=== PATIENT | female | born 1980 | race Hispanic/Latino ===

== ENCOUNTER 2019-04-14 06:40 | Observation (INO) ==
[2019-04-14] MEDS ORDERED: NS 1,000 ML IV ONE (07:08)
[2019-04-14] MEDS ORDERED: TORADOL IV ONE (07:08)
--- NOTE | 2019-04-14 08:05 | Diag Imaging Result Doc PS360 ---
EXAM: FLAT/UPRIGHT ABD/1 VIEW CHEST HISTORY: pain ruq TECHNIQUE: Two view abdomen. Single view chest. COMPARISON: None. FINDINGS: Supine and erect views of the abdomen reveal a nonobstructive bowel gas pattern. There is no organomegaly or mass effect. There is moderate colonic stool burden. Metallic tubular structure projects over the left ramus. Single view of the chest reveals no infiltrate, effusion, or pneumothorax. There is no free air beneath the hemidiaphragm. IMPRESSION: Moderate constipation. Electronically signed by Ame Orellana 04/14/2019 8:03 AM
[2019-04-14 08:16] LABS: BILIRUBIN URINE NEGATIVE (NEGATIVE); BLOOD URINE 4+ (NEGATIVE); CLARITY SL. CLOUDY (CLEAR); COLOR YELLOW; GLUCOSE URINE NEGATIVE (NEGATIVE); KETONE URINE TRACE mg/dL (NEGATIVE); LEUKOCYTES URINE 1+ (NEGATIVE); NITRITE URINE NEGATIVE (NEGATIVE); PH URINE 6.5; PROTEIN URINE 1+(30 mg/dL) mg/dL (NEGATIVE); SP GRAVITY URINE 1.025; UROBILINOGEN URINE NORMAL
[2019-04-14 08:17] LABS: BASO# 0.01 X1000 (0.0-0.2); BASO% 0.1 % (0.0-0.8); EOS# 0.03 X1000 (0.0-0.7); EOS% 0.4 % (0.0-10.0); HEMATOCRIT 35.1 % (37.0-47.0); HEMOGLOBIN 10.5 g/dL (12.0-16.0); LYMPH% 16.4 % (20.5-51.1); MCH 22.1 PG (27-31); MCHC 29.9 g/dL (33-37); MCV 73.9 FL (81-99); MONO# 0.54 X1000 (0.11-0.59); MONO% 7.4 % (1.7-9.3); MPV 10.8 FL (7.4-10.4); NEUT# 5.53 X1000 (1.4-6.5); NEUT% 75.7 % (42.2-75.2); PLT 271 X1000 (130-400); RBC 4.75 XMIL (4.2-5.4); RDW 17.5 % (11.5-14.5); URINE BACTERIA NEGATIVE /HFP; URINE CAST NONE SEEN /LPF; URINE CRYSTAL NONE SEEN /HPF; URINE EPITHELIAL CELLS <10 /HPF (<10); URINE RBC TNTC /HPF (<10); URINE SOURCE CLEAN CATCH; URINE WBC <10 /HPF (<10); URINE YEAST NONE SEEN /HPF; WBC 7.31 X1000 (4.8-10.8)
[2019-04-14 08:35] LABS: AGAP 11; ALBUMIN 4.5 g/dL (3.5-5.0); ALKALINE PHOSPHATASE 71 U/L (32-104); AMYLASE 61 U/L (20-200); BUN 7 mg/dL (8-22); CALCIUM 9.3 mg/dL (8.8-10.2); CHLORIDE 109 mmol/L (98-107); COSMO 283; CREATININE 0.6 mg/dL (0.5-0.9); ESTIMATED GFR > 60; GLUCOSE 99 mg/dL (70-104); GOT 15 U/L (10-30); GPT 10 U/L (10-36); POTASSIUM 4.9 mmol/L (3.5-5.1); SODIUM 143 mmol/L (136-145); TCO2 23 mmol/L (25-35); TOTAL PROTEIN 7.6 g/dL (6.3-8.3)
--- NOTE | 2019-04-14 09:26 | EKG Report ---
Test Performed on : 04/14/2019 07:14:16 AM Test Reason : CP Blood Pressure : / mmHG Vent. Rate : 088 BPM Atrial Rate : 088 BPM P-R Int : 096 ms QRS Dur : 078 ms QT Int : 386 ms P-R-T Axes : 026 063 018 degrees QTc Int : 467 ms Sinus rhythm. with short [place] Nonspecific ST abnormality Abnormal ECG No previous ECGs available Unconfirmed Result
--- NOTE | 2019-04-14 10:47 | Diag Imaging Result Doc PS360 ---
EXAM: CT RENAL STONE SEARCH HISTORY: pain TECHNIQUE: This exam was performed using automated exposure control, adjustment of mA or kV according to patient size, and/or use of iterative reconstruction technique. COMPARISON: None. FINDINGS: Lung bases: There are bibasilar alveolar infiltrates and bilateral effusions right greater than left. Limited evaluation of the unenhanced liver, spleen, pancreas, adrenal glands, kidneys and visualized bowel are unremarkable. Kidneys/Ureter/Bladder: There is a tiny punctate calcification left kidney. No right nephrolithiasis. No hydronephrosis is appreciated. Retroperitoneum: Normal caliber aorta. No pneumoperitoneum is identified. No ascites is identified. Normal appendix. Unenhanced uterus appears prominent. No acute bony abnormality is demonstrated. IMPRESSION: 1.Bibasilar alveolar infiltrates and small bilateral effusions. 2.Punctate calcification left kidney. No hydronephrosis. 3. Incidental findings as detailed above. Electronically signed by Ame Orellana 04/14/2019 10:44 AM
--- NOTE | 2019-04-14 12:36 | PROVIDER DOCUMENTATION ---
This chart was entered by Kelsey Teague Scribe, acting as scribe for Juan Chappell MD. HPI-Chest Pain - General Chief Complaint: Chest Pain Stated Complaint: FLANK PAIN Time Seen by Provider: 04/14/19 07:04 Source: patient Allergies/Adverse Reactions: Patient Allergies Allergy/AdvReac Type Severity Reaction Status Date / Time No Known Allergies Allergy Verified 04/14/19 06:55 Home Medications: Home Medication List Medication Instructions Recorded Confirmed Last Taken Type NK [No Home Medications] 04/14/19 04/14/19 Unknown History - History of Present Illness-CP Nature of Presenting Problem: 39 yof presents to the ed with c/o rt lower chest wall pain and rt flank pain acute onset at 0300am. pt has no hx of stones Location: reports: other (rt anterior chest wall under breast) Chest Pain Radiation: reports: back (rt flank) Quality of Pain: reports: aching, dull Severity in ED: moderate Onset/Duration: this morning (0300am) Timing: still present, improving, intermittent Context/Activities at Onset: reports: sleep (pt was woke from sleep) Modifying Factors: improves with: nothing Associated Symptoms: reports: back pain. denies: nausea, shortness of breath, vomiting Nitro Today/Relief: no nitro taken today Aspirin Treatment Today: 325 mg x 1, provided by ED Prior Chest Pain/Cardiac Workup: reports: no prior chest pain Similar Symptoms Previously?: No Recently Seen Here or By Another Healthcare Provider: No Review of Systems - Adult - REVIEW OF SYSTEMS - ADULT Constitutional: denies: chills, fever Eyes: reports: no symptoms reported Ears, Nose, Mouth & Throat: reports: no symptoms reported Cardiovascular: reports: see HPI, chest pain. denies: palpitations, syncope Respiratory: denies: cough, shortness of breath, wheezing Gastrointestinal: denies: abdominal pain, diarrhea, nausea, vomiting Genitourinary: reports: see HPI, flank pain Musculoskeletal: reports: see HPI, back pain. denies: neck pain Integumentary: reports: no symptoms reported Neurological: denies: dizziness/vertigo, headache/migraines Psychiatric: reports: no symptoms reported Endocrine: reports: no symptoms reported Hematologic/Lymphatic: reports: no symptoms reported Allergic/Immunologic: reports: no symptoms reported All Other Systems: Reviewed and Negative Past History - Adult - PAST MEDICAL HISTORY-ADULT Review of Records: reports: Old Records Reviewed, Nursing Assessment Review, Medications Reviewed, Social history reviewed & non-contributory. Major Childhood Illnesses: reports: denies history Cardiovascular: reports: denies history Respiratory: reports: denies history Gastrointestinal: reports: denies history Obstetrical/Gynecological: reports: denies history Genitourinary: reports: denies history Musculoskeletal: reports: denies history Hand Dominance: Right Handed Neurological: reports: denies history Psychiatric: reports: denies history Endocrine/Immune: reports: denies history Other Conditions: reports: denies history - PRIOR SURGERIES/PROCEDURES Surgical/Procedure History: reports: reviewed, not pertinent - IMMUNIZATION STATUS Childhood Immunizations: See Nurse Assessment Flu Vaccine: See Nurse Assessment - FAMILY HISTORY Family History: reviewed, not pertinent - SOCIAL HISTORY Smoking: denies Substance Use: denies Alcohol Use Frequency: never Living Situation: family Physical Exam-General - PHYSICAL EXAM-ADULT Initial Vital Signs Reviewed: Yes - CONSTITUTIONAL General Appearance: appears well, alert, mild distress - EYES Eyes: PERRL/EOMI, pink conjunctivae - HEAD, EARS, NOSE, MOUTH & THROAT HENMT: normocephalic/atraumatic, moist mucous membranes, normal ENT inspection - NECK Neck: non-tender, full range of motion, supple, normal inspection - RESPIRATORY Respiratory: lungs clear, normal breath sounds - CARDIOVASCULAR Cardiovascular: normal peripheral pulses, tachycardia (109) - CHEST (BREASTS) Chest/Breast: tenderness (rt lower chest pain under breast) - GASTROINTESTINAL (ABDOMEN) Abdominal Exam: normal bowel sounds, non tender, soft - GENITOURINARY Female Genitalia/Pelvic Exam: deferred, other (pt is on menstrual cycle now) Rectal Exam: deferred Hemoccult Exam: deferred - LYMPHATIC Lymphatic: no adenopathy - MUSCULOSKELETAL Back Exam: normal inspection, no CVA tenderness, no vertebral tenderness, other (rt flank pain) Extremity: normal range of motion, non-tender, normal gait, normal inspection - SKIN Integumentary: normal color, normal turgor, warm/dry - NEUROLOGIC Neurologic: grossly normal - PSYCHIATRIC Psych/Mental Status: normal mood/affect, normal thought content, normal thought process, oriented x 3 - HEART Score HEART Score: History: Slightly Suspicious HEART Score: ECG: Normal HEART Score: Age: < or = 45 Years HEART Score: Risk Factors for Atherosclerotic Disease: No Risk Factors Known HEART Score: Troponin: < or = Normal Limit Total HEART Score:: 0 Progress - PLAN OF CARE/RESULTS Progress/Plan/Lab Results: Vital Signs - 8 hr 04/14/19 06:50 04/14/19 10:59 Temperature 98.4 F 98.5 F Pulse Rate 109 H 65 Respiratory Rate 20 17 Blood Pressure 128/90 111/71 O2 Sat by Pulse Oximetry 95 100 Laboratory Results - last 24 hr 04/14/19 04/14/19 04/14/19 07:45 07:45 07:45 WBC 7.31 RBC 4.75 Hgb 10.5 L Hct 35.1 L MCV 73.9 L MCH 22.1 L MCHC 29.9 L RDW Std Deviation 17.5 H Plt Count 271 MPV 10.8 H Immature Gran % (Auto) 0.0 Neut % (Auto) 75.7 H Lymph % (Auto) 16.4 L Gates % (Auto) 7.4 Eos % (Auto) 0.4 Baso % (Auto) 0.1 Immature Gran # (Auto) 0.00 Neut # (Auto) 5.53 Lymph # (Auto) 1.20 Gates # (Auto) 0.54 Eos # (Auto) 0.03 Baso # (Auto) 0.01 D-Dimer, Quantitative Sodium 143 Potassium 4.9 Chloride 109 H Carbon Dioxide 23 L Anion Gap 11 BUN 7 L Creatinine 0.6 Estimated GFR/1.73 m2 > 60 BUN/Creatinine Ratio 12 Glucose 99 Calculated Osmolality 283 Calcium 9.3 Total Bilirubin 0.30 AST 15 ALT 10 Alkaline Phosphatase 71 Total Protein 7.6 Albumin 4.5 Globulin 3.0 Albumin/Globulin Ratio 1.0 Amylase 61 Lipase 28 Urine Source Urine Color Urine Clarity Urine pH Ur Specific [place] Urine Protein Urine Ketones Urine Blood Urine Nitrite Urine Bilirubin Urine Urobilinogen Urine Microscopic RBC Urine WBC Urine Microscopic WBC Ur Epithelial Cells Urine Crystals Urine Bacteria Urine Casts Urine Yeast Urine Glucose 04/14/19 04/14/19 07:45 07:45 WBC RBC Hgb Hct MCV MCH MCHC RDW Std Deviation Plt Count MPV Immature Gran % (Auto) Neut % (Auto) Lymph % (Auto) Gates % (Auto) Eos % (Auto) Baso % (Auto) Immature Gran # (Auto) Neut # (Auto) Lymph # (Auto) Gates # (Auto) Eos # (Auto) Baso # (Auto) D-Dimer, Quantitative 0.32 Sodium Potassium Chloride Carbon Dioxide Anion Gap BUN Creatinine Estimated GFR/1.73 m2 BUN/Creatinine Ratio Glucose Calculated Osmolality Calcium Total Bilirubin AST ALT Alkaline Phosphatase Total Protein Albumin Globulin Albumin/Globulin Ratio Amylase Lipase Urine Source CLEAN CATCH Urine Color YELLOW Urine Clarity SL. CLOUDY A Urine pH 6.5 Ur Specific [place] 1.025 Urine Protein 1+(30 mg/dL) A Urine Ketones TRACE Urine Blood 4+ Urine Nitrite NEGATIVE Urine Bilirubin NEGATIVE Urine Urobilinogen NORMAL Urine Microscopic RBC TNTC A Urine WBC 1+ A Urine Microscopic WBC <10 Ur Epithelial Cells <10 Urine Crystals NONE SEEN Urine Bacteria NEGATIVE Urine Casts NONE SEEN Urine Yeast NONE SEEN Urine Glucose NEGATIVE Orders Category Date Time Status If abnormal EKG, order: NOW Care 04/14/19 07:[address] RENAL STONE SEARCH [CT] Stat Exams 04/14/19 10:25 Completed FLAT/UPRIGHT ABD/1 VIEW CHEST [RAD] Stat Exams 04/14/19 07:12 Completed AMYLASE [CHEM] Stat Lab 04/14/19 07:45 Completed CBC WITH ELECTRONIC DIFF [HEME] Stat Lab 04/14/19 07:45 Completed COMPREHENSIVE METABOLIC PANEL [CHEM] Stat Lab 04/14/19 07:45 Completed D-DIMER [COAG] Stat Lab 04/14/19 07:45 Completed LIPASE [CHEM] Stat Lab 04/14/19 07:[address] W/POSS RFLX CULT [URINALYSIS] Stat Lab 04/14/19 07:45 Completed URINE CULTURE [RM] Routine Lab 04/14/19 08:18 Ordered 0.9% Sodium Chloride Inj [Ns] 1,000 ml Med 04/14/19 07:08 Discontinued IV 999 mls/hr Ketorolac [Toradol] Med 04/14/19 07:08 Discontinued 30 mg IV NOW ONE CP/Palp <45 No Known Cardiac Hx Stat Oth 04/14/19 07:05 Ordered EKG [EKG] Routine Ther 04/14/19 07:11 Draft EKG [EKG] Stat Ther 04/14/19 07:06 Ordered Result Diagrams: 04/14/19 07:45 04/14/19 07:45 - REASSESSMENT Reassessment #1 Time Reassessed: 09:21 Status: improving (pain has improved with medication) Reassessment #2 Time Reassessed: 12:04 Status: unchanged (dr chappell at bedside) - EKG 1 Time of EKG reading by physician:: 07:14 EKG Read and Signed by:: Juan Chappell EKG Interpretation (*Must complete 3 of following elements*): Abnormal Rate: 88 Rhythm: sinsu rhythm with short pr [place]: normal QRS: normal [place] Interval: normal Comments: nonspecific ST abnormality - XRAY 1 XRAY: Bilateral XRAY Study: Abdomen Impression: See EMR Report (EXAM: FLAT/UPRIGHT ABD/1 VIEW CHEST HISTORY: pain ruq TECHNIQUE: Two view abdomen. Single view chest. COMPARISON: None. FINDINGS: Supine and erect views of the abdomen reveal a nonobstructive bowel gas pattern. There is no organomegaly or mass effect. There is moderate colonic stool burden. Metallic tubular structure projects over the left ramus. Single view of the chest reveals no infiltrate, effusion, or pneumothorax. There is no free air beneath the hemidiaphragm. IMPRESSION: Moderate constipation. Electronically signed by Ame Orellana 04/14/2019 8:03 AM 04/14/19 0803 Interpreting Physician: Ame Orellana MD Dictated Date/Time: 04/14/19 0801 cc: Juan Chappell MD; None,PCP) - CT/MRI 1 CT Study: Kidneys Impression: See EMR Report (EXAM: CT RENAL STONE SEARCH HISTORY: pain TECHNIQUE: This exam was performed using automated exposure control, adjustment of mA or kV according to patient size, and/or use of iterative reconstruction technique. COMPARISON: None. FINDINGS: Lung bases: There are bibasilar alveolar infiltrates and bilateral effusions right greater than left. Limited evaluation of the unenhanced liver, spleen, pancreas, adrenal glands, kidneys and visualized bowel are unremarkable. Kidneys/Ureter/Bladder: There is a tiny punctate calcification left kidney. No right nephrolithiasis. No hydronephrosis is appreciated. Retroperitoneum: Normal caliber aorta. No pneumoperitoneum is identified. No ascites is identified. Normal appendix. Unenhanced uterus appears prominent. No acute bony abnormality is demonstrated. IMPRESSION: 1.Bibasilar alveolar infiltrates and small bilateral effusions. 2.Punctate calcification left kidney. No hydronephrosis. 3. Incidental findings as detailed above. Electronically signed by Ame Orellana 04/14/2019 10:44 AM 04/14/19 1044) - CONSULTS/PCP/HOSPITALIST Notification #1 *Consult/PCP/Hospitalist*: hospitalist dr vieyra Time Discussed: 12:34 Consult Disposition: Admit Departure - Departure Date of Disposition Decision: 04/14/19 Time of Disposition Decision: 12:33 DIAGNOSIS: Bilateral pneumonia Qualifiers: Pneumonia type: due to unspecified organism Lung location: unspecified part of lung Qualified Code(s): J18.9 - Pneumonia, unspecified organism Disposition: ADMITTED INPATIENT 09 Certified Medical Emergency: Emergent Condition: Stable Referrals and Follow-Ups: None,PCP [Primary Care Provider] - - Critical Care Note This patient required my direct & personal management of CC.: Yes Total Time (mins): 36 Critical Care Statement: This patient required my direct personal management to treat or rule out processes, the absence of which, could potentiallly result in sudden, clinically significant life or limb threatening deterioration. Attestation - Physician/ BRAD Attestation Patient care was provided by Advanced Practice Provider:: No The physician spent face to face time with patient:: Yes Advanced Practice Provider documentation review:: Supervising physician onsite and consulted in the evaluation and care of this patient. The physician did have a face to face encounter with the patient. This chart was documented by the indicated scribe, (Kelsey Teague Scribe) and accurately reflects the services I performed and decisions made by me, Juan Klein MD, as attested by the provider's signature.
[2019-04-14] MEDS ORDERED: ROCEPHIN 1 GM in NS 50 ML IV ONE (13:21)
[2019-04-14] MEDS ORDERED: MIRALAX PO SCH (14:00)
[2019-04-14] MEDS ORDERED: ZITHROMAX PO SCH (14:38)
[2019-04-14] MEDS ORDERED: NS 1,000 ML IV SCH (14:38)
--- NOTE | 2019-04-14 16:44 | HISTORY AND PHYSICAL ---
CHIEF COMPLAINT: Right-sided chest pain. HISTORY OF PRESENT ILLNESS: This is a 39-year-old female with no prior health history who presents to the emergency room complaining of being awakened at 3 a.m. with lower chest wall pain that radiated through to the right flank. The pain was under her right breast wrapping around to the back. She described it as a aching dull sensation with no alleviating or exacerbating factors. She denied cough, shortness of breath, any fevers or chills, any palpitations, syncope, dizziness. PAST MEDICAL HISTORY: Denies. PAST SURGICAL HISTORY: Denies. SOCIAL HISTORY: Denies alcohol, tobacco, or illicit drug use. ALLERGIES: No known drug allergies. HOME MEDICATIONS: None. REVIEW OF SYSTEMS: Discussed with patient with pertinent positives stated in the HPI. She denied any syncope, dizziness, palpitations, a productive cough, fever, chills, night sweats, recent weight loss, weight gain, any nausea, vomiting, diarrhea, constipation, black or bloody vomitus or stools, hematuria, dysuria, frequency, urgency. FAMILY HISTORY: Positive for hypertension mother and father. PHYSICAL EXAMINATION: GENERAL: This is a 39-year-old female who is sitting on the wheelchair in the ER in no distress. VITAL SIGNS: Blood pressure is 114/67 with heart rate of 62, respirations are 20, temperature is 98.5 degrees with room air saturations 97-100%. HEENT: Pupils are equal, round, react to light. EOMs are intact. Sclerae are anicteric. Head is normocephalic, atraumatic. Mucous membranes are moist. NECK: Supple with trachea midline. CARDIOVASCULAR: Regular rate and rhythm. S1 and S2 appreciated. She has no lower extremity edema. Calves are nontender bilateral with peripheral pulses palpable x4 extremities. PULMONARY: Breath sounds are clear with no increased work of breathing noted. Chest rises and falls symmetric respiration. Chest wall is nontender to palpation. GASTROINTESTINAL: Abdomen is soft, nontender, nondistended. Bowel sounds in all 4 quadrants. : No CVA or suprapubic tenderness. SKIN: Warm and dry. LABS: WBC is 7.3 with hemoglobin 10.5, hematocrit 35.1 and platelets of 271,000. D-dimer 0.32. Sodium 143, potassium 4.9, BUN 7, creatinine 0.6 with a glucose of 99. Urinalysis reveals 1+ protein with [id number]-count red blood cells and less than 10 microscopic white blood cells and epithelial cells with no yeast. Abdominal x-ray reveals constipation. Renal CT reveals bibasilar alveolar infiltrates and small bilateral effusions, punctate calcification the left kidney. No hydronephrosis. ASSESSMENT AND PLAN: 1. Bilateral pneumonia. Blood cultures were drawn in the emergency room. Rocephin and azithromycin, Any further antibiotics will be culture driven. incentive spirometer q.4 hours. 2. Chest pain. Toradol , telemetry. 3. Hematuria. The patient is on her period at this time. Urine culture is pending. 4. For deep vein thrombosis prophylaxis will use SCDs, gastrointestinal prophylaxis Prilosec. continue with IV hydration. Check a BMP, CBC in the morning. Plan was discussed with Dr Gonzalez. Further treatments pending hospital course. Dictated by DAMION Fitzgerald for Michael Gonzalez MD cc: DAMION Fitzgerald MD [facility]
--- NOTE | 2019-04-14 19:33 | HISTORY AND PHYSICAL ---
Patient presented to the hospital with flank pain and cough. Subsequently was diagnosed with pneumonia. She does not have a primary care doctor. We are going to admit her to the hospital, place her on antibiotics, treat her for pneumonia as well as constipation, oxygen if needed, breathing treatments, and will follow. Hopefully, her symptoms will improve and she can be discharged home soon. cc: Michael Gonzalez MD
[2019-04-15 04:46] VITALS: BP 105/59
[2019-04-15 05:54] LABS: BASO# 0.01 X1000 (0.0-0.2); BASO% 0.2 % (0.0-0.8); EOS# 0.11 X1000 (0.0-0.7); EOS% 2.5 % (0.0-10.0); HEMATOCRIT 31.3 % (37.0-47.0); HEMOGLOBIN 9.2 g/dL (12.0-16.0); LYMPH# 1.93 X1000 (1.2-3.4); LYMPH% 43.8 % (20.5-51.1); MCH 21.8 PG (27-31); MCHC 29.4 g/dL (33-37); MCV 74.2 FL (81-99); MONO# 0.43 X1000 (0.11-0.59); MONO% 9.8 % (1.7-9.3); MPV 10.8 FL (7.4-10.4); NEUT# 1.93 X1000 (1.4-6.5); NEUT% 43.7 % (42.2-75.2); PLT 241 X1000 (130-400); RBC 4.22 XMIL (4.2-5.4); RDW 17.4 % (11.5-14.5); WBC 4.41 X1000 (4.8-10.8)
[2019-04-15 06:30] LABS: AGAP 8; BUN 6 mg/dL (8-22); CALCIUM 8.5 mg/dL (8.8-10.2); CHLORIDE 109 mmol/L (98-107); COSMO 273; CREATININE 0.6 mg/dL (0.5-0.9); ESTIMATED GFR > 60; GLUCOSE 90 mg/dL (70-104); POTASSIUM 4.2 mmol/L (3.5-5.1); SODIUM 138 mmol/L (136-145); TCO2 22 mmol/L (25-35)
[2019-04-15] MEDS ORDERED: PRILOSEC PO SCH (07:00)
[2019-04-15] MEDS ORDERED: OMNICEF PO SCH (09:00)
[2019-04-15] MEDS ORDERED: ROCEPHIN 1 GM in NS 50 ML IV SCH (13:00)
--- NOTE | 2019-04-15 21:37 | DISCHARGE SUMMARY ---
ADMISSION DATE: 04/14/2019 DISCHARGE DATE: 04/15/2019 DIAGNOSES: 1. Bilateral pneumonia. 2. Chest pain resolved. 3. Hematuria in a patient who is currently on her menses . DIAGNOSTICS: 1. Abdominal x-ray revealed moderate constipation. 2. Renal CT. Bibasilar alveolar infiltrates and small bilateral effusions. Punctate calcification in the left kidney. No hydronephrosis. 3. Microbiology. Blood cultures x2 are pending. 4. Urine culture revealed no pathogenic growth. HOSPITAL COURSE: Ms Rodriguez presented to the emergency room complaining of right-sided chest pain that she described as a dull achy type sensation that was present with. She was found to have bibasilar pneumonia for which she was given Rocephin and azithromycin. Urinalysis revealed some red blood cells although the patient is on menses, culture revealed no growth. She remained afebrile. Thankfully today she is ready for discharge. DISCHARGE PHYSICAL EXAM: Vital Signs: Blood pressure is 105/59 with a heart rate of 65, respirations 18, temperature 97.9 degrees with room air saturations 100%. Cardiovascular: Regular rate and rhythm. S1 and S2 appreciated. She had no lower extremity edema with peripheral pulses palpable x4 extremities. Calves are nontender bilateral. Pulmonary: Breath sounds clear with no increased work of breathing noted. Chest rises and falls symmetric with respiration. Gastrointestinal: Abdomen soft, nontender, nondistended with bowel sounds in all 4 quadrants. Neurologic: She is alert, oriented x3. Skin is warm and dry. DISCHARGE MEDICATIONS: 1. Omnicef 300 mg p.o. b.i.d. for 5 days. 2. Zithromax 250 mg p.o. daily for 4 days. FOLLOWUP: Her primary care physician in 2 to 3 weeks sooner if needed. She has been instructed to return emergency room or call to be seen sooner for any syncope, dizziness, chest pain, palpitations, temperature greater than 101, any PND, orthopnea, nausea, vomiting, diarrhea, constipation, black or bloody vomitus or stools, any hematuria, dysuria, frequency, urgency. She being discharged home in stable condition with family members. TIME SPENT: Greater than 30 minutes. Dictated by DAMION Fitzgerald for Michael Gonzalez MD cc: EleDAMION Gabriel MD
--- NOTE | 2019-04-16 04:11 | DISCHARGE SUMMARY ---
ADMISSION DATE: 04/14/2019 DISCHARGE DATE: 04/15/2019 ADDENDUM: Patient seen and examined by myself. Full note dictated and discussed with nurse practitioner. Patient presented to the hospital, diagnosed with pneumonia, placed on antibiotics. She tolerated it very well. On discharge, the patient is feeling tremendously better. She is not requiring oxygen. She is ambulating without any difficulty. cc: Michael Gonzalez MD
== END 2019-04-15 10:13 | disposition home or self-care (01) ==
LOC: P.ED 06:40 → P.MEDSURG 06:40
PROVIDERS: ATTEND Family Medicine